=== PATIENT | female | born 1950 | race Caucasian/White ===

== ENCOUNTER 2017-10-19 15:48 | Emergency (ER) | payer MEDICARE, OTHER ==
[~2017-10-19] VITALS: Ht 157.5 cm; Wt 56.9 kg
[2017-10-19 15:58] VITALS: BP 191/78
--- NOTE | 2017-10-19 16:05 | NUR ---
PT AMBULATED TO CHAIR A. FAMILY WITH PATIENT.
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
--- NOTE | 2017-10-19 16:29 | NUR ---
DR CORDOVA EVALUATING PT;
--- NOTE | 2017-10-19 16:29 | NUR ---
Patient being evaluated by Dr. Lopez at bedside.
--- NOTE | 2017-10-19 16:54 | NUR ---
WENT TO CT SCAN ACCOMPANIED BY TECH.
[2017-10-19] MEDS: ACETAMINOPHEN EXTRA STRENGTH 500 MG TAB PO ONE (17:14)
[2017-10-19 17:33] VITALS: BP 156/88
--- NOTE | 2017-10-19 17:33 | NUR ---
Patient discharged with v/s stable. Written and verbal after care instructions given and explained. Patient verbalized understanding. Ambulatory with steady gait. All questions addressed prior to discharge. Advised to follow up with PMD.
== END 2017-10-19 17:33 | disposition home or self-care (01) ==
LOC: MED 15:48
DX: F43.10 Post-traumatic stress disorder, unspecified (principal); E78.00 Pure hypercholesterolemia, unspecified; I10 Essential (primary) hypertension; X58.XXXA Exposure to other specified factors, initial encounter; Y93.89 Activity, other specified; Y92.89 Other specified places as the place of occurrence of the external cause; Y99.8 Other external cause status
CPT/HCPCS: 70450; 99284